=== PATIENT | male | born 1965 | race Two or more races ===

== ENCOUNTER 2021-04-30 19:57 | Inpatient (IN) | payer OTHER ==
[~2021-04-30] VITALS: Ht 180.3 cm; Wt 88.5 kg
== END 2021-05-05 19:53 | disposition home or self-care (01) | DRG 392 ==
LOC: ER 19:57 → MEDJ 05-01 07:05
PROVIDERS: ADMIT Internal Medicine; ATTEND Internal Medicine
PROC: BW21ZZZ Computerized Tomography (CT Scan) of Abdomen and Pelvis (ICD-10-PCS; principal; 2021-05-01)
DX: K57.32 Diverticulitis of large intestine without perforation or abscess without bleeding (principal); F12.980 Cannabis use, unspecified with anxiety disorder; Z20.822 Contact with and (suspected) exposure to COVID-19